=== PATIENT | female | born 1990 | race African-American/Black ===

== ENCOUNTER 2020-02-27 10:55 | Emergency (ER) | payer SELFPAY ==
[2020-02-27 11:51] LABS: HEMATOCRIT 35.4 % (37.0-47.0); HEMOGLOBIN 11.1 g/dl (12.0-16.0); IMMATURE GRANULOCYTES 0.2 % (0.0-5.0); MEAN CELL VOLUME 74.7 fL CALC (80.0-100.0); MEAN CORPUSCULAR HGB 23.4 pG CALC (26.0-32.0); MEAN CORPUSCULAR HGB CONC 31.4 g/dL CAL (32.0-36.0); NEUT# 2.52 thou/uL (2.00-7.15); RED BLOOD COUNT 4.74 mill/uL (4.20-5.60); RED CELL DISTRI WIDTH 15.8 % (11.5-15.5)
[2020-02-27 12:08] LABS: ALBUMIN 4.1 g/dL (3.2-5.0); ALKALINE PHOSPHATASE 61 u/l (38-126); ANION GAP 8 (6-22 (CALC)); BILIRUBIN, TOTAL 0.3 mg/dL (0.0-1.4); BUN 7 mg/dL (7-17); BUN/CREATININE RATIO 9 (12-20 (CALC)); CARBON DIOXIDE 25 mmol/l (22-30); CHLORIDE 110 mmol/l (95-108); CREATININE 0.7 mg/dL (0.5-1.0); GFR > 60 ML/MIN (>=60 (CALC)); GFR FOR AFR.AMER. > 60 ML/MIN (>=60 (CALC)); POTASSIUM 3.6 mmol/l (3.5-5.1); SGOT/AST 25 u/l (14-36); SODIUM 139 mmol/l (137-146); TOTAL PROTEIN 7.5 g/dL (6.3-8.2)
[2020-02-27 12:19] LABS: MYOGLOBIN 31 ng/mL (0 - 62)
[2020-02-27 12:32] LABS: URINE BILIRUBIN - DIPSTICK NEGATIVE (NEGATIVE); URINE BLOOD DIPSTICK NEGATIVE (NEGATIVE); URINE COLOR YELLOW; URINE GLUCOSE - DIPSTICK NEGATIVE (NEGATIVE); URINE KETONE NEGATIVE (NEGATIVE); URINE LEUK ESTERASE NEGATIVE (NEGATIVE); URINE NITRITE - DIPSTICK NEGATIVE (Negative); URINE PH 5.5 (4.5-8.0); URINE PROTEIN - DIPSTICK NEGATIVE (NEG-TRACE); URINE SPECIFIC GRAVITY >=1.030; URINE UROBILINOGEN - DIPSTICK 0.2 E.U./dL (0.2)
[2020-02-27 13:05] VITALS: BP 127/69
== END 2020-02-27 13:05 | disposition home or self-care (01) | DRG 833 ==
LOC: ED 10:55
PROVIDERS: Emergency Medicine
DX: O26.899 Other specified pregnancy related conditions, unspecified trimester (principal); M79.10 Myalgia, unspecified site; Z3A.00 Weeks of gestation of pregnancy not specified

== ENCOUNTER 2024-03-30 10:39 | Emergency (ER) | payer SELFPAY ==
[~2024-03-30] VITALS: Ht 170.2 cm; Wt 113.5 kg
[~2024-03-30 10:39] MED LIST: AMOX/K CLAV875 M1 PO
[2024-03-30 10:59] VITALS: BP 147/103
[2024-03-30 11:00] VITALS: BP 150/101
[2024-03-30] MEDS ORDERED: ACETAMINOPHEN 500 MG TAB PO ONE (11:10)
[2024-03-30 11:30] VITALS: BP 145/98
[2024-03-30 12:00] VITALS: BP 153/99
[2024-03-30] MEDS ORDERED: TAM75CAP PO (12:02)
[2024-03-30 12:08] VITALS: BP 153/99
== END 2024-03-30 12:35 | disposition home or self-care (01) | DRG 153 ==
LOC: ED 10:39 → LWOBS 10:50 → ED 10:50
DX: J11.1 Influenza due to unidentified influenza virus with other respiratory manifestations (principal); Z72.0 Tobacco use; Z20.822 Contact with and (suspected) exposure to COVID-19